=== PATIENT | male | born 1990 | race Caucasian/White ===

== ENCOUNTER 2016-11-10 11:49 | Emergency (ER) | payer OTHER ==
[~2016-11-10 11:49] MED LIST: ALBU8.5H8 IH; CEPH-263 PO; HYDR-971 PO; HYDR1TAB10 PO; IBUP800T19 PO; LORA10TA68 PO; PERM60CR12 TP
[2016-11-10 11:52] VITALS: BP 143/80
--- NOTE | 2016-11-10 12:13 | PHYS DOC ---
Past History Past Medical History: Asthma, Kidney Stones, Other Past Surgical History: No Surgical History Smoking: Non-smoker Alcohol Use: None Drug Use: None Adult General Chief Complaint Chief Complaint: [facility] IN[facility]UR[facility] HPI 26 year-old gentleman presents to the history of having struck his forehead against a trailer accidentally yesterday. He suffered 2 horizontal lacerations just above the bridge of his nose. This morning he felt some fullness around his eyes so he presents now for evaluation. This morning he had Minimal amount of discomfort around his eyes and decided to be checked out. Review of Systems Review of Systems Constitutional: Denies fever or chills [] Eyes: Denies change in visual acuity, redness, or eye pain [] HENT: Denies nasal congestion or sore throat no there is a slight amount of tenderness over his forehead and 2 horizontal midline lacerations which are superficial Respiratory: Denies cough or shortness of breath [] Cardiovascular: No additional information not addressed in HPI [] GI: Denies abdominal pain, nausea, vomiting, bloody stools or diarrhea [] : Denies dysuria or hematuria [] Musculoskeletal: Denies back pain or joint pain [] Integument: Denies rash or skin lesions [] Neurologic: Slight frontal headache, focal weakness or sensory changes neurologic examination is entirely normal regarding cranial nerves, cerebellar, motor and sensory exam Endocrine: Denies polyuria or polydipsia [] Allergies Allergies Allergies Coded Allergies Type Severity Reaction Last Updated Verified No Known Allergies Allergy Unknown 07/22/14 Yes Physical Exam Physical Exam Constitutional: Well developed, well nourished, no acute distress, non-toxic appearance. [] HENT: Normocephalic, atraumatic, bilateral external ears normal, oropharynx moist, no oral exudates, nose normal. [] Eyes: PERRLA, EOMI, conjunctiva normal, no discharge. [] Neck: Normal range of motion, no tenderness, supple, no stridor. [] Cardiovascular:Heart rate regular rhythm, no murmur [] Lungs & Thorax: Bilateral breath sounds clear to auscultation [] Abdomen: Bowel sounds normal, soft, no tenderness, no masses, no pulsatile masses. [] Skin: Warm, dry, no erythema, no rash. [] Back: No tenderness, no CVA tenderness. [] Extremities: No tenderness, no cyanosis, no clubbing, ROM intact, no edema. [] Neurologic: Alert and oriented X 3, normal motor function, normal sensory function, no focal deficits noted. [] Psychologic: Affect normal, judgement normal, mood normal. [] EKG EKG [] Radiology/Procedures Radiology/Procedures [] Impressions: Acute minor head injury superficial forehead lacerations Course & Med Decision Making Course & Med Decision Making Neurologic examination was performed the patient did fine examined the laceration and I'm sure it will heal without any difficulty [] Dragon Disclaimer Dragon Disclaimer This chart was dictated in whole or in part using Voice Recognition software in a busy, high-work load, and often noisy Emergency Department environment. It may contain unintended and wholly unrecognized errors or omissions. Departure Departure: Impression: Primary Impression: Head injury Disposition: 01 HOME, SELF-CARE Condition: STABLE Patient Instructions: Head Injury, Adult, Head Injury, Adult, [id number] JANNETH ROSADO MD Nov 10, 2016 12:13
== END 2016-11-10 12:12 | disposition home or self-care (01) ==
LOC: ER 11:49
DX: S09.8XXA Other specified injuries of head, initial encounter (principal); S01.81XA Laceration without foreign body of other part of head, initial encounter; J45.909 Unspecified asthma, uncomplicated; Z87.442 Personal history of urinary calculi; W22.8XXA Striking against or struck by other objects, initial encounter; Y93.89 Activity, other specified; Y99.8 Other external cause status; Y92.89 Other specified places as the place of occurrence of the external cause
CPT/HCPCS: 99281

== ENCOUNTER → 2017-01-01 | Outpatient (CLI) | payer OTHER ==
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
== END | disposition home or self-care (01) ==
LOC: DXRADRC 12:03
PROVIDERS: ATTEND Family Medicine
DX: S20.219A Contusion of unspecified front wall of thorax, initial encounter (principal); V89.2XXA Person injured in unspecified motor-vehicle accident, traffic, initial encounter; Y93.89 Activity, other specified; Y92.89 Other specified places as the place of occurrence of the external cause; Y99.8 Other external cause status
CPT/HCPCS: 71020